=== PATIENT | male | born 1940 | race Caucasian/White ===

== ENCOUNTER → 2020-05-15 | Outpatient (CLI) | payer MEDICARE ==
[~2020-05-15] MED LIST: VISIPAQUE 320 MG/ML, 150ML BOTTLE ONE
[2020-05-15 09:26] LABS: ANION GAP 7 mmol/L (5-15); CHLORIDE 108 mmol/L (98-107); CREATININE 1.12 mg/dL (0.7-1.3)
== END | disposition home or self-care (01) ==
LOC: RAD 08:53
PROVIDERS: ATTEND Internal Medicine Cardiovascular Disease
DX: Z01.810 Encounter for preprocedural cardiovascular examination (principal); I11.0 Hypertensive heart disease with heart failure; I50.33 Acute on chronic diastolic (congestive) heart failure; R06.02 Shortness of breath; I65.23 Occlusion and stenosis of bilateral carotid arteries; I25.10 Atherosclerotic heart disease of native coronary artery without angina pectoris; I35.8 Other nonrheumatic aortic valve disorders; I70.0 Atherosclerosis of aorta
CPT/HCPCS: 36415; 71275; 74174; 80048; 93880; 94060; 94726; 94729; Q9967